=== PATIENT | female | born 1995 | race Asian ===

== ENCOUNTER 2017-11-23 17:44 | Outpatient (CLI) | payer MEDICAID ==
[~2017-11-23] VITALS: Ht 160.7 cm; Wt 73.9 kg
[2017-11-23 18:00] VITALS: BP 113/75; Ht 160.7 cm; Wt 73.9 kg
== END 2017-11-23 19:05 | disposition home or self-care (01) ==
LOC: OB 17:44 → L&D 17:44 → UNDOADMOB 17:44 → L&D 19:05 → UNDODISOB 19:05 → EDSTATUS 11-25 15:04
PROVIDERS: ATTEND Obstetrics & Gynecology
DX: O26.893 Other specified pregnancy related conditions, third trimester (principal); Z3A.40 40 weeks gestation of pregnancy
CPT/HCPCS: 84112; G0463; 99213; G0378; G0379

== ENCOUNTER 2017-11-24 19:24 | Inpatient (IN) | payer MEDICAID ==
[~2017-11-24] VITALS: Ht 160 cm; Wt 73.9 kg
[2017-11-24] MEDS ORDERED: LR(*) 1000 ML BAG 1,000 ML IV SCH (19:36)
[2017-11-24] MEDS ORDERED: OXYTOCIN 30 UNIT/D5LR 500 ML 500 ML IV PRN (19:36)
[2017-11-24] MEDS ORDERED: FAMOTIDINE(*) 20MG/50ML PREMIX 50 ML IVPB PRN (19:36)
[2017-11-24] MEDS ORDERED: LIDOCAINE/SOD BICARB 8.4% SYR SC PRN (19:40)
[2017-11-24] MEDS ORDERED: DINOPROSTONE 10 MG INSERT PV ONE (19:40)
[2017-11-24] MEDS ORDERED: LIDOCAINE 1% LOCAL 300 MG/30ML INJ PRN (19:40)
[2017-11-24] MEDS ORDERED: fentaNYL CITR 100 MCG/2 ML AMP IVP PRN (19:40)
[2017-11-24] MEDS ORDERED: ONDANSETRON 4 MG/2 ML VIAL IVP PRN (19:40)
[2017-11-24] MEDS ORDERED: METOCLOPRAMIDE 10 MG/2 ML SDV IVP PRN (19:40)
[2017-11-24] MEDS ORDERED: ACETAMINOPHEN 500 MG TAB PO PRN (19:40)
[2017-11-24] MEDS ORDERED: FLUSH 10 ML SYR IVP PRN (19:40)
[2017-11-24] MEDS ORDERED: DLR(*) 1000 ML BAG 1,000 ML IV PRN (19:50)
[2017-11-24 20:19] LABS: PLATELET COUNT, AUTOMATED 159 K/uL (150-450)
[2017-11-24] MEDS ORDERED: ZOLPIDEM TARTRATE 5 MG TAB PO ONE (21:40)
[2017-11-25] MEDS ORDERED: GLYCERIN/WITCH HAZEL LEAF 1 PK TOP PRN (03:00)
[2017-11-25] MEDS ORDERED: MAGNESIUM HYDROXIDE* 30ML UDCP PO PRN (03:00)
[2017-11-25] MEDS ORDERED: HYDROmorphone HCL 2 MG TAB PO PRN (03:00)
[2017-11-25] MEDS ORDERED: ACETAMINOPHEN 325 MG TAB PO PRN (03:00)
[2017-11-25] MEDS ORDERED: HYDROCORTISONE 2.5% CR 30GM TB PR PRN (03:00)
[2017-11-25] MEDS ORDERED: BENZOCAINE 20% 60 ML BTL TP PRN (03:00)
[2017-11-25] MEDS ORDERED: LANOLIN OINT 7 GM TUBE TP PRN (03:00)
[2017-11-25] MEDS ORDERED: MEASLES,MUMP,RUBELLA VAC 0.5ML SC ONE (03:00)
[2017-11-25] MEDS ORDERED: INFLUENZA VIRUS VAC 0.5 ML SYR IM ONLY ONE (03:00)
[2017-11-25] MEDS ORDERED: DIPHTH/TETANUS/ACEL. PERTUSSIS IM ONE (03:00)
--- NOTE | 2017-11-25 03:03 | History & Physical ---
History of Present Illness Age of Patient: 22 : 1 Para or TPAL: 0 EDC per LMP: November 19, 2017 Estimated Gestational Age: 40.6 Chief Complaint IOL History of Present Illness The patient is a 22 year old 1 para 0 admitted at 40 5/7 weeks estimated gestational age with an estimated date of delivery 11/19/17. Patient is admitted for induction of labor for post dates . No vaginal bleeding. Good movement and occasional contractions. She was evaluated for active labor. She had an uncomplicated course. Shee received cervadil for ripening and progressed rapidly through labor. Her record was reviewed. History Allergies: Coded Allergies: No Known Drug Allergies (Unverified , 11/24/17) Med Rec Home Meds No Active Prescriptions or Reported Meds Exam General Exam Cardiovascular: Regular Rate and Rhythm Respiratory: Clear to Auscultation Abdomen: Gravid - Non-Tender Extremities: No Edema Cervical Dialation: 10 Cervical Effacement (%): 100 Station: +2 Presentation: Vertex Uterine Contractions(Q min): 3 Uterine Contraction Strength: Strong Fetus Heart Tones: 120 Heart Tone Variabilty: Moderate FHT Decelerations: Variable FHT Category: II Medical Decision Making Data Points Result Diagram: 11/24/172007 Assessment and Plan Problems: (1) Active labor at term Assessment & Plan: received cervadil for ripening and progressed rapidly through labor to complete and was allowed to push Copies to: OEL BLANTON MD, JOHN MD November 25, 2017 03:03
--- NOTE | 2017-11-25 03:06 | OB Delivery Note ---
Delivery Note Vaginal Delivery Type: Spont. Vaginal Delivery Delivery Date: November 25, 2017 Delivery Time: 02:23 Delivery Anesthesia: Local Sex: Male Weight (gms): 3040 [place] Apgars: 1 Minute (9), 5 Minute (9) Repair Needed: Laceration, Vaginal, Perineal, 2nd Degree Estimated Blood Loss: 400 Notes: CERVADIL PLACED FOR IOL, THEN REMOVED AND CONTINUED TO LABOR AND PROGRESSED TO COMPLETE AND ALLOWED TO PUSH. DELIVERED VERTEX OVER MIDLINE TEAR. REPAIR WITH 3-0 VICRYL AFTER LOCAL. NO COMPLICATIONS Manager [employer] in Attendence: No Copies to: OLE BLANTON MD, JOHN MD November 25, 2017 03:06
[2017-11-25] MEDS ORDERED: IBUP800T37 PO (03:07)
[2017-11-25] MEDS ORDERED: HYDR2TAB4 PO (03:07)
--- NOTE | 2017-11-25 03:08 | OB/GYN Discharge Summary ---
Discharge Summary Reason for Hosp/Final Diag: (1) Active labor at term (2) care following vaginal delivery Hospital Course & Plan: IOL, Vaginal delivery on day 1, Pain controlled, Tolerating diet and activity. Baby . Normal lochia. Weight (Pounds): 163 Result Diagram: 11/24/172007 Condition: Improved Discharge: Home, Self Correction Meds Active Scripts Ibuprofen (IBUPROFEN) 800 Mg Tablet, 1 TAB PO Q8H, #30 TAB 0 Refills Take with food every 8 hours. Prov:OLE GIBSON MD 11/25/17 Hydromorphone Hcl (HYDROMORPHONE HCL) 2 Mg Tablet, 2-4 MG PO Q4H for PAIN, #20 TAB 0 Refills Prov:OLE GIBSON MD 11/25/17 Follow up with: Dr. Gibson [phone] Follow up in: 6 wks PP or PO Discharge Diet: As Tolerates Discharge Activity: Pelvic Rest Copies to: OLE GIBSON MD, JOHN MD November 25, 2017 03:08
[2017-11-25] MEDS ORDERED: LIDOCAINE 1% LOCAL 300 MG/30ML 30 ML ONE (04:16)
[2017-11-25 04:24] VITALS: BP 113/75; Ht 160 cm; Wt 73.9 kg
[2017-11-25 08:15] VITALS: BP 121/63
--- NOTE | 2017-11-25 08:45 | OB/GYN Progress Note ---
OB Subjective Progress Notes Subjective Pain controlled, Tolerating diet and activity. Baby . Normal lochia. GI: NEG Nausea, NEG Vomiting : Voiding Well Pain: Mild OB Objective Physical Exam Vital Signs Date Time Temp Pulse Resp B/P (MAP) Pulse Ox O2 Delivery O2 Flow Rate FiO2 11/25/17 04:24 98.8 90 16 113/75 (88) 11/25/17 03:49 Room Air Intake and Output 11/26/17 07:00 Intake Total 1500 ml Balance 1500 ml Intake IV Total 1500 ml Cardiovascular: Regular Rate and Rhythm Respiratory: Clear to Auscultation Abdomen: Fundus Firm Extremities: No Edema Result Diagram: 11/24/172007 Assessment and Plan Problems: (1) Active labor at term (2) care following vaginal delivery Assessment & Plan: Pain controlled, Tolerating diet and activity. Baby . Normal lochia. OLE BLANTON MD November 25, 2017 08:45
[2017-11-25] MEDS: DOCUSATE CALCIUM 240 MG CAP PO SCH ×2 (08:47→21:44)
[2017-11-25] MEDS: MULTIVITAMINS (PRENATAL) TAB PO SCH (08:47)
[2017-11-25] MEDS ORDERED: IBUPROFEN 800 MG TAB PO SCH (09:00)
[2017-11-25] MEDS: IBUPROFEN 800 MG TAB PO SCH ×2 (12:04→21:44)
[2017-11-25 12:10] VITALS: BP 124/63
[2017-11-25 15:10] VITALS: BP 119/60
[2017-11-25 19:20] VITALS: BP 99/54
[2017-11-26 00:10] VITALS: BP 108/56
[2017-11-26 03:50] VITALS: BP 114/67
[2017-11-26] MEDS: IBUPROFEN 800 MG TAB PO SCH (03:51)
--- NOTE | 2017-11-26 09:02 | OB/GYN Progress Note ---
OB Subjective Progress Notes Subjective Pain controlled, Tolerating diet and activity. Baby . Normal lochia. GI: NEG Nausea, NEG Vomiting : Voiding Well Pain: Mild OB Objective Physical Exam Vital Signs Date Time Temp Pulse Resp B/P (MAP) Pulse Ox O2 Delivery O2 Flow Rate FiO2 11/26/17 03:50 97.8 87 16 114/67 (83) 11/25/17 08:15 92 Room Air Cardiovascular: Regular Rate and Rhythm Respiratory: Clear to Auscultation Abdomen: Fundus Firm Extremities: No Edema Result Diagram: 11/26/17 0556 Assessment and Plan Problems: (1) Active labor at term (2) care following vaginal delivery Assessment & Plan: Pain controlled, Tolerating diet and activity. Baby . Normal lochia. OLE BLANTON MD November 26, 2017 09:02
[2017-11-26] MEDS: MULTIVITAMINS (PRENATAL) TAB PO SCH (09:06)
[2017-11-26] MEDS: DOCUSATE CALCIUM 240 MG CAP PO SCH (09:06)
[2017-11-26 09:08] VITALS: BP 112/52
== END 2017-11-26 13:45 | disposition home or self-care (01) | DRG 775 ==
LOC: OB 19:24
PROVIDERS: ADMIT Obstetrics & Gynecology; ATTEND Obstetrics & Gynecology
PROC: 3E0P7VZ Introduction of Hormone into Female Reproductive, Via Natural or Artificial Opening (ICD-10-PCS; 2017-11-24)
PROC: 10E0XZZ Delivery of Products of Conception, External Approach (ICD-10-PCS; principal; 2017-11-25)
PROC: 0KQM0ZZ Repair Perineum Muscle, Open Approach (ICD-10-PCS; 2017-11-25)
DX: O48.0 Post-term pregnancy (principal); O70.1 Second degree perineal laceration during delivery; Z3A.40 40 weeks gestation of pregnancy; Z37.0 Single live birth
CPT/HCPCS: 36415; 84112; 85025; 85027; 86850; 86900; 86901; 99213; G0378; G0379; J2001; J2590